=== PATIENT | female | born 1945 | race Caucasian/White ===

== ENCOUNTER 2018-10-24 01:09 | Emergency (ER) | payer OTHER, MEDICARE ==
[2018-10-24 01:20] VITALS: BP 155/45; PULSE 92; TEMP 98.9; BMI 24.6
--- NOTE | 2018-10-24 01:22 | PDOC ---
History of Present Illness - General Chief Complaint: Shortness of Breath Stated Complaint: S.O.B. Time Seen by Provider: 10/24/18 01:21 History Source: Patient, Friend Exam Limitations: No Limitations - History of Present Illness Initial Comments: HPI: 73 y/o female BIBEMS to [facility] ER complaining of shortness of breath and anterior chest wall pain. States the shortness of breath woke her from sleep this evening. Described as an air hunger sensation. Pain is in her anterior chest wall and along her diaphragm; described as sharp and worse with inspiration. Pt reports similar episodes over the past several days to weeks. Episodes usually improve without intervention but tonight she appeared worse to her friend, who called 911. Pt underwent left total knee replacement in Jul 2018 at [facility] by Dr. Sandoval. She has been evaluated several times in post-op clinic. Underwent lower extremity U/S two weeks and chest xray, which were reportedly normal. Seen in post-op clinic this morning and told her knee was healing appropriately. Pt denies h/o of pulmonary or cardiovascular disorders. No personal or familial h/o of blood clots. Does not take any hormonal therapy. No history of long car or plane travel. Pt has a h/o of anxiety. Takes Diazepam 5mg nightly for sleep. No recent change in dose or frequency. PCP: Dr. Ibrahim Orthopedist: Dr. Sandoval Social Hx: - Tobacco: Nonsmoker Medical Hx: - HLD - Vit. D deficiency Surgical Hx: - L TKR, 07/2018 Past History - Past Medical History Allergies/Adverse Reactions: Allergies Allergy/AdvReac Type Severity Reaction Status Date / Time No Known Allergies Allergy Verified 10/24/18 01:17 Home Medications: Ambulatory Orders Cholecalciferol (Vitamin D3) [Vitamin D3] 1,000 unit PO DAILY 10/24/18 Cyanocobalamin (Vitamin B-12) [Vitamin B-12] 1,000 mcg IM DAILY 10/24/18 Rosuvastatin Calcium [Crestor] 10 mg PO HS 10/24/18 - Suicide/Smoking/Psychosocial Hx Smoking History: Never smoked Have you smoked in the past 12 months: No Information on smoking cessation initiated: No 'Breaking Loose' booklet given: 08/05/14 Hx Alcohol Use: No Drug/Substance Use Hx: No Review of Systems - Review of Systems Able to Perform ROS?: Yes Comments:: In addition to that documented in the HPI above, the additional ROS was obtained : Constitutional: Denies fevers, chills, or syncope Head: Denies vision changes ENMT: Denies sore throat CV: Per HPI Resp: Per HPI GI: Denies vomiting or diarrhea : Denies painful urination MSK: Denies recent trauma Skin: Denies new rashes Neuro: Denies new numbness or tingling or weakness Endocrine: Denies polyuria Heme: Denies bleeding or bruising *Physical Exam - Vital Signs Last Vital Signs Temp Pulse Resp BP Pulse Ox 98.9 F 92 H 24 H 155/45 L 98 10/24/18 01:17 10/24/18 01:17 10/24/18 01:17 10/24/18 01:17 10/24/18 01:17 - Physical Exam Comments: Constitutional: Well-developed, well-nourished adult female in obvious discomfort. Found semi-fowlers on hospital bed. Alert and oriented x4. Answered all questions appropriately and completely. Speech was non-labored, non- pressured. Head: Normocephalic. No obvious external signs of trauma. Eyes: Sclerae white. Ears: Hearing grossly intact. Nose: No nasal discharge. Neck: Supple, trachea is midline. No JVD. Cardiovascular / Chest: Regular rate and regular rhythm. No murmur, rubs, clicks, or gallops. Peripheral pulses: radial pulses full. No anterior chest wall tenderness to palpation. No pretibial edema. Respiratory: Tachypneic and shallow breathing. Equal chest rise and fall. Clear to auscultation in anterior and posterior lung leigh bilaterally. No stridor, no wheezing, no rhonchi. Gastrointestinal: abdomen is soft, non-tender, non-distended. Neuro: Alert and oriented. Moving all four extremities spontaneously. Skin: Warm, dry, and intact. No bruising, rashes, or other lesions. MSK: Post surgical scar overlying anterior surface of left knee. Left knee is mildly swollen and warm to the touch compared to right. No erythema, induration , or flatulence. : No R or L CVA tenderness. Psych: Affect: concerned and anxious. Mood: normal. ED Treatment Course - LABORATORY CBC & Chemistry Diagram: 10/24/18 01:47 10/24/18 01:29 - ADDITIONAL ORDERS Additional order review: 10/24/18 10/24/18 10/24/18 01:47 01:47 01:29 PT with INR 12.20 INR 1.03 PTT (Actin FS) 30.7 D-Dimer 4998 H Sodium 141 Potassium 3.4 L Chloride 107 Carbon Dioxide 27 Anion Gap 8 BUN 6 L Creatinine 0.7 Creat Clearance w eGFR 81.58 Random Glucose 108 H Calcium 9.2 Total Bilirubin 0.3 AST 12 L ALT 15 Alkaline Phosphatase 78 Creatine Kinase 49 Troponin I < 0.02 B-Natriuretic Peptide 313.3 Total Protein 7.2 Albumin 3.6 10/24/18 01:47 RBC 3.93 MCV 91.7 MCHC 33.3 RDW 14.1 MPV 8.4 Neutrophils % 59.5 Lymphocytes % 26.2 Monocytes % 10.3 H Eosinophils % 3.4 Basophils % 0.6 - RADIOLOGY Radiology Studies Ordered: Category Date Time Status CHEST CTA [CT] Stat CT Scan 10/24/18 01:45 Taken Radiograph Interpretation: CTA of Chest w/ PE Protocol Nabor Beckett MD wrote on Oct 24, 2018 at 03:19 AM: Referring Physician: BISHOP WHITESIDE Patient Name: NOLA GARG THIS IS A PRELIMINARY REPORT FROM [facility] [facility] DATE OF SERVICE: 2018-10-24 02:38:32 IMAGES: 181 EXAM: CHEST CTA HISTORY: Short of breath COMPARISON: None. FINDINGS: Heart:: Normal Pericardium: not thickened Thoracic aorta and great vessels: Normal Superior vena cava and inferior vena cava: Normal Pulmonary arteries: Normal Thoracic esophagus: Normal Mediastinal lymph nodes: Normal Central airways: Normal Lungs: clear without focal consolidation Pleural spaces: Normal with no pneumothorax or pleural fluid Chest wall: Normal Superior abdomen: Normal IMPRESSION: No pulmonary embolism One or more of the following dose reduction techniques were used: automated exposure control, adjustment of the mA and/or kV according to patient size, use of iterative reconstructive technique. THIS DOCUMENT HAS BEEN ELECTRONICALLY SIGNED Nabor Beckett MD 10/24/2018 03:18 EST Medical Decision Making - Medical Decision Making *Reviewed vital signs, nursing notes, and prior visit documentation (if available). 73 y/o female presenting with acute episode of SOB, tachypnea, and chest pain. Several similar episodes recently. S/p L TKR in Jul 2018. Recent reportedly normal lower extremity U/S and CXR. No cardio or pulmonary history. Suspect possible heightened anxiety given anxiety history versus daily diazepam usage. Will evaluate for PE with CTA given recent surgery. Low suspicion for ACS but will obtain EKG and Troponin. Low suspicion for asthma or COPD given auscultatory findings. EKG revealed sinus rhythm without ischemic changes. Troponin negative. Will not repeat troponin as pt states she experienced similar symptoms last evening as well. Would expect trop elevation at 24 hours. CXR and CTA unremarkable for pulmonary effusion. BNP not elevated. Low suspicion for acute CHF exacerbation. CTA unremarkable for PE. D-Dimer elevated in setting of recent surgical history with healing post-op site. Low suspicion for PE. Pt was monitored in the department on telemetry and continuous pulse oximetry. No desaturation on room air. No arrhythmias captured. Pt reassessed and reports feeling much better. Suspect anxiety versus atypical chest pain. No apparent life threats identified. Discussed imaging and laboratory results with pt. Answered all questions. Provided return precautions. Pt expressed verbal understanding and agreement with plan to discharge home with outpatient follow up. Provided copy of results. *DC/Admit/Observation/Transfer Diagnosis at time of Disposition: Shortness of breath, Atypical chest pain - Discharge Dispostion Disposition: HOME Condition at time of disposition: Good Decision to Admit order: No - Referrals Referrals: Mari Rogers MD [Primary Care Provider] - - Patient Instructions Printed Discharge Instructions: DI for Atypical Chest Pain Additional Instructions: You were seen today for shortness of breath and chest pain. Your chest xray and CT scan were normal. There were no signs of a pulmonary embolism (blood clot) in your lungs. Your blood work was normal. Your heart and pulse oximetry were monitored for several hours while you were in the department without any recorded abnormal events. Your EKG was normal. Your symptoms this evening may be related to anxiety. The cause does not appear to be life threatening. Follow up with your primary care doctor within the next 3-4 days. You will need to call to make an appointment. The number is included in this packet. A copy of todays results are attached to this packet. Take it to the appointment so your doctor can review them. Go to the nearest emergency department if your condition worsens or you feel like you need additional emergency evaluation. Print Language: PORTUGUESE - Post Discharge Activity
--- NOTE | 2018-10-24 01:45 | PDOC ---
Attending Attestation - Resident Resident Name: Fausto De La Vega - ED Attending Attestation I have performed the following: I have examined & evaluated the patient, The case was reviewed & discussed with the resident, I agree w/resident's findings & plan, Exceptions are as noted - HPI HPI: 10/24/18 04:47 73F pmh HLD, Celiac disease here with acute recurrence of sob and chest pain waking her from sleep. Pt states that she has been having similar self limited episodes for the last several weeks. Chest pain is sharp, middle of the chest and triggered by deep breaths. Pt is s/p TKR 07/2018, endorses decreased mobility but not immobilized recently. No other complaints - Physicial Exam PE: 10/24/18 04:53 GENERAL: Well-appearing, well-nourished. No apparent distress. HEENT: Normocephalic, atraumatic. PERRL, EOM intact. CARDIOVASCULAR: Normal S1, S2. Regular rate and rhythm. PULMONARY: Clear to auscultation bilaterally. ABDOMEN: Soft, non-distended, non-tender. EXTREMITIES: Normal ROM in all four extremities. No gross deformities. Post op scar on L knee , warm to touch, slightly swollen in comparison to R, no erythema, fluctuance, induration, drainage SKIN: Warm, dry. No rash NEUROLOGICAL: No focal neurological deficits. - Medical Decision Making 10/24/18 04:54 DDx includes PE, ACS, less likely effusion, pericarditis, pna, consider anxiety f/u labs, cxr, ekg, cta exam, investigations negative for worrisome pathology
[2018-10-24 02:00] LABS: BASO % 0.6 % (0-2.0); EOS % 3.4 % (0-4.5); HEMATOCRIT 36.1 % (32.4-45.2); LYMPH % 26.2 % (8-40); MCH 30.5 pg (25.7-33.7); MCHC 33.3 g/dl (32.0-36.0); MEAN CELL VOLUME 91.7 fl (80-96); MEAN PLT VOLUME 8.4 fl (7.5-11.1); MONO % 10.3 % (3.8-10.2); NEUT % 59.5 % (42.8-82.8); PLATELET COUNT 264 K/MM3 (134-434); RBC 3.93 M/mm3 (3.60-5.2); RDW 14.1 % (11.6-15.6); WHITE BLOOD COUNT 5.9 K/mm3 (4.0-10.0)
[2018-10-24 02:15] LABS: ALBUMIN 3.6 g/dl (3.4-5.0); ALK PHOS 78 U/L (45-117); ANION GAP 8 MMOL/L (8-16); BILIRUBIN,TOTAL 0.3 mg/dL (0.2-1); BLOOD UREA NITROGEN 6 mg/dL (7-18); CALCIUM 9.2 mg/dL (8.5-10.1); CHLORIDE 107 mmol/L (98-107); CO2 27 mmol/L (21-32); CREATININE 0.7 mg/dL (0.55-1.3); GLUCOSE,RANDOM 108 mg/dL (74-106); N-TERMINAL BNP 313.3 pg/ml (5-450); POTASSIUM 3.4 mmol/L (3.5-5.1); SGOT/AST 12 U/L (15-37); SGPT/ALT 15 U/L (13-61); SODIUM 141 mmol/L (136-145); TOT PROT 7.2 g/dl (6.4-8.2)
[2018-10-24 02:22] LABS: INR 1.03 (0.83-1.09); PROTHROMBIN TIME (PATIENT) 12.2 SEC (9.7-13.0)
[2018-10-24 02:24] LABS: ACTIVATED PTT 30.7 SECONDS (25.2-36.5)
--- NOTE | 2018-10-24 10:26 | EKG ---
Test Reason : Blood Pressure : / mmHG Vent. Rate : 076 BPM Atrial Rate : 076 BPM P-R Int : 132 ms QRS Dur : 078 ms QT Int : 378 ms P-R-T Axes : 053 017 024 degrees QTc Int : 425 ms NORMAL SINUS RHYTHM NONSPECIFIC ST AND T WAVE ABNORMALITY Confirmed by KATHY JOHNSON MD ([id number]) on 10/24/2018 10:26:08 AM Referred By: Confirmed By:KATHY JOHNSON MD
== END 2018-10-24 04:50 | disposition home or self-care (01) ==
LOC: JER 01:09
DX: R06.02 Shortness of breath (principal); R07.89 Other chest pain; F41.9 Anxiety disorder, unspecified
CPT/HCPCS: 36415; 71046-TC-FY; 71275-TC; 80053; 82550; 83880; 84484; 85025; 85379; 85610; 85730; 93005; 93010; 99282-25

== ENCOUNTER 2020-02-11 17:58 | Emergency (ER) | payer OTHER, MEDICARE ==
[2020-02-11] MEDS ORDERED: CYCLOBENZAPRINE HCL 10 MG TABLET (FP) PO ONE (18:09)
--- NOTE | 2020-02-11 18:09 | PDOC ---
Rapid Medical Evaluation Chief Complaint: Back Pain Time Seen by Provider: 02/11/20 18:05 Medical Evaluation: Allergies Allergy/AdvReac Type Severity Reaction Status Date / Time No Known Allergies Allergy Verified 02/11/20 18:04 Vital Signs Temp Pulse Resp BP Pulse Ox 98.1 F 83 18 168/83 99 02/11/20 18:00 02/11/20 18:00 02/11/20 18:00 02/11/20 18:00 02/11/20 18:00 02/11/20 18:05 I have performed a brief in-person evaluation of this patient. CC: lower back pain after picking up her dog; denies saddle anesthesia, incontinence of urine or stool PE: No focal findings. Orders: flexeril Patient will proceed to ED for further evaluation. Discharge Disposition - Diagnosis Lower back pain - Referrals - Patient Instructions - Post Discharge Activity
[2020-02-11 18:14] VITALS: BP 168/83; PULSE 83; TEMP 98.1; BMI 27.3
[2020-02-11] MEDS ORDERED: CYCLOBENZAPRINE HCL 10 MG TABLET (FP) ONE (18:25)
[2020-02-11] MEDS ORDERED: KETOROLAC TROMETHAMINE 30 MG/1 ML VIAL IM ONE (18:45)
[2020-02-11] MEDS ORDERED: KETOROLAC TROMETHAMINE 30 MG/1 ML VIAL ONE (18:48)
--- NOTE | 2020-02-11 18:51 | PDOC ---
History of Present Illness - General Chief Complaint: Back Pain Stated Complaint: BACK PAIN Time Seen by Provider: 02/11/20 18:05 History Source: Patient Exam Limitations: No Limitations - History of Present Illness Initial Comments: 02/11/20 18:49 74-year-old history of hyperlipidemia, hypertension presents complaining of 4 days of low back pain, non radiating, initially pain began after she finished gardening. Patient took acetaminophen 325 approximately 4 hours ago. denies fever, chills, urinary or bowel incontinence, saddle anesthesia. Sent to the ED by Dr. Rogers. ROS: low back pain PE: GENERAL: well-appearing, NAD HEAD: NCAT EYES: Pupils equal, round and reactive to light, sclera anicteric, conjunctiva clear ENT: pharynx: no erythema, no exudate, uvula midline NECK: supple CHEST: nontender RESP: clear, no w/r/r CARDIO: rrr, no m/g/r ABD: +BS, soft, nontender, non distended BACK: no midline spinal ttp, no CVAT EXTREMITIES: Normal range of motion, no edema NEUROLOGICAL: Normal speech, normal gait SKIN: Warm, Dry 02/11/20 20:16 Is this a multiple visit Asthma Patient?: No Past History - Medical History Allergies/Adverse Reactions: Allergies Allergy/AdvReac Type Severity Reaction Status Date / Time No Known Allergies Allergy Verified 02/11/20 18:04 Home Medications: Ambulatory Orders Cholecalciferol (Vitamin D3) [Vitamin D3] 1,000 unit PO DAILY 10/24/18 Cyanocobalamin (Vitamin B-12) [Vitamin B-12] 1,000 mcg IM DAILY 10/24/18 Rosuvastatin Calcium [Crestor] 10 mg PO HS 10/24/18 COPD: No HTN: Yes Hypercholesterolemia: Yes - Immunization History Immunization Up to Date: Yes - Psycho-Social/Smoking History Smoking History: Never smoked Have you smoked in the past 12 months: No Information on smoking cessation initiated: No 'Breaking Loose' booklet given: 08/05/14 - Substance Abuse Hx (Audit-C & DAST Scrn) How often the patient has a drink containing alcohol: Never Score: In Men: 4 or > Positive; In Women: 3 or > Positive: 0 Screen Result (Pos requires Nsg. Audit-10AR): Negative In the last yr the pt used illegal drug/Rx for NonMed reason: No Score: Yes response is considered Positive: 0 Screen Result (Positive result requires Nsg. DAST-10): Negative *Physical Exam - Vital Signs Last Vital Signs Temp Pulse Resp BP Pulse Ox 98.1 F 83 18 168/83 99 02/11/20 18:00 02/11/20 18:00 02/11/20 18:00 02/11/20 18:00 02/11/20 18:00 ED Treatment Course - LABORATORY CBC & Chemistry Diagram: 02/11/20 19:30 02/11/20 19:11 - Medications Given in the ED: ED Medications Discontinued Medications Generic Name Dose Route Start Last Admin Trade Name Freq PRN Reason Stop Dose Admin Cyclobenzaprine HCl 10 mg 02/11/20 18:09 02/11/20 18:27 Flexeril - PO 02/11/20 18:10 10 mg ONCE ONE Administration Medical Decision Making - Medical Decision Making 02/11/20 20:16 74-year-old history of hyperlipidemia, hypertension presents complaining of 4 days of low back pain, non radiating, initially pain began after she finished gardening. Patient took acetaminophen 325 approximately 4 hours ago. denies fever, chills, urinary or bowel incontinence, saddle anesthesia. Sent to the ED by Dr. Rogers. Cr 0.8 Patient felt better after Toradol 30 mg IM and cyclobenzaprine 10 mg p.o. Patient is ambulatory LS x-ray: No acute finding (on my read) Discussed case with Dr. Rogers [phone] Patient has orthopedic appointment scheduled for February 15, 2020 Patient understands return precautions Discharge - Discharge Information Problems reviewed: Yes Clinical Impression/Diagnosis: Lower back pain Qualifiers: Chronicity: acute Back pain laterality: bilateral Sciatica presence: without sciatica Qualified Code(s): M54.5 - Low back pain Condition: Stable Disposition: HOME - Admission No - Follow up/Referral Referrals: Mari Rogers MD [Primary Care Provider] - - Patient Discharge Instructions Additional Instructions: Take acetaminophen 650 mg every 6 hours as needed for pain Keep your scheduled appointment with orthopedist for Saturday, February 15, 2020 Follow-up with your primary care physician Dr. Rogers Return to ED if you develop fever, chills, urinary or bowel incontinence, inability to walk or any concerning symptoms - Post Discharge Activity
[2020-02-11 19:31] LABS: BASO % 0.5 % (0-2.0); EOS % 1.5 % (0-4.5); HEMATOCRIT 37.8 % (32.4-45.2); HEMOGLOBIN 12.6 GM/dL (10.7-15.3); LYMPH % 18.1 % (8-40); MCHC 33.4 g/dl (32.0-36.0); MEAN CELL VOLUME 92.8 fl (80-96); MEAN PLT VOLUME 7.9 fl (7.5-11.1); MONO % 9.1 % (3.8-10.2); NEUT % 70.8 % (42.8-82.8); PLATELET COUNT 246 K/MM3 (134-434); RBC 4.07 M/mm3 (3.60-5.2); RDW 13.7 % (11.6-15.6); WHITE BLOOD COUNT 7.7 K/mm3 (4.0-10.0)
[2020-02-11 20:07] LABS: ALBUMIN 3.9 g/dl (3.4-5.0); BILIRUBIN,TOTAL 0.3 mg/dL (0.2-1); BLOOD UREA NITROGEN 12.6 mg/dL (7-18); CALCIUM 9.8 mg/dL (8.5-10.1); CREATININE 0.9 mg/dL (0.55-1.3); POTASSIUM 4.3 mmol/L (3.5-5.1); TOT PROT 7.6 g/dl (6.4-8.2)
== END 2020-02-11 20:50 | disposition home or self-care (01) ==
LOC: JER 17:58
PROC: 3E0233Z Introduction of Anti-inflammatory into Muscle, Percutaneous Approach (ICD-10-PCS; principal; 2020-02-11)
DX: M54.5 Low back pain (principal)
CPT/HCPCS: 36415; 72100-TC-FY; 80053; 85025; 99284-25